=== PATIENT | male | born 1950 | race Hispanic/Latino ===

== ENCOUNTER 2018-09-28 06:47 | Day surgery (SDC) | payer OTHER ==
[2018-09-28] VITALS (8 sets, daily range): BP systolic 116–159; BP diastolic 54–75
[~2018-09-28] VITALS: Ht 170.2 cm; Wt 165.6 kg
[~2018-09-28 06:47] MED LIST: SODIUM CHLORIDE 0.9% 1000ML 1,000 ML IV ONE
[2018-09-28] MEDS ORDERED: DEXTROSE 50%-WATER 50 ML DISP.SYRIN IV ONE (07:59)
[2018-09-28] MEDS ORDERED: LIDOCAINE HCL-MPF 2% 5ML VIAL ONE (07:59)
[2018-09-28] MEDS ORDERED: PROPOFOL 10 MG/ML 20ML VIAL IV ONE (07:59)
== END 2018-09-28 08:55 | disposition home or self-care (01) ==
LOC: DAH 06:47 → ENDO 06:47
PROVIDERS: ATTEND Internal Medicine
DX: Z12.11 Encounter for screening for malignant neoplasm of colon (principal); D12.5 Benign neoplasm of sigmoid colon; Z68.37 Body mass index [BMI] 37.0-37.9, adult; F43.10 Post-traumatic stress disorder, unspecified; Z98.890 Other specified postprocedural states; Z79.899 Other long term (current) drug therapy; I10 Essential (primary) hypertension; E11.9 Type 2 diabetes mellitus without complications
CPT/HCPCS: 45385; 82948 ×2; 88305; A4606; J2704; J3490; J7030; J7070; 45330